=== PATIENT | male | born 1970 | race Caucasian/White ===

== ENCOUNTER 2025-04-05 09:10 | Emergency (ER) | payer BC, SELFPAY ==
[2025-04-05 09:15] VITALS: BP 149/93
[2025-04-05 10:44] VITALS: BMI 26.6
--- NOTE | 2025-04-05 10:55 | ED.GENMED ---
History of Present Illness
<HEATHER Horan - Last Filed: 04/05/25 14:04>
General
Chief Complaint: Post Operative Problem(s)
Source: patient
Exam Limitations: none
Time Seen by Provider: 04/05/25 10:26
Nursing documentation reviewed up to this point in time: agreed with
History of Present Illness
History of Present Illness:
Patient is a 54-year-old male who presents to the ER for evaluation of right groin pain. Patient had an ablation for SVT done 2 weeks ago at [facility] and reports that starting yesterday he had some discomfort in his right groin. He
always has had some discomfort and burning sensation in his right groin and nothing on the left however yesterday complained of increased pain. He denies any redness or drainage from the incision. He denies any fevers. He reports he does feel the
area is very minimally swollen. He was sent to rule out DVT. Does feel that it is were worse when he walks.
He does have a history of inguinal hernia repair in the past.
Past History
<HEATHER Horan - Last Filed: 04/05/25 14:04>
Past History
ED Past Medical History: Arrthythmia, HTN and Hypercholesterolemia
Social History
Tobacco: Non-smoker
Family History
Family History: Negative Early CAD or CAD
Review of Systems
<HEATHER Horan - Last Filed: 04/05/25 14:04>
Review of Systems
Allergies reviewed?: Yes
All Other Systems: ROS reviewed and negative except as documented in HPI and ROS
Constitutional: Reports no symptoms
Musculoskeletal: Reports other (right groin discomfort )
Skin: Reports no symptoms
Neurological: Reports no symptoms
Psychiatric: Reports no symptoms
Phy Exam
<HEATHER Horan - Last Filed: 04/05/25 14:04>
General Physical Exam
General Presentation: no apparent distress
General age: appears stated age
General Skin: warm and dry
General Habitus: normal
General Mental: alert
General Hydration: appears well hydrated
Gastrointestinal Exam
Gastrointestinal Exam: non tender and soft
Neurological Exam
Neurological Exam: alert and oriented x3
Musculoskeletal Exam
Musculoskeletal Exam: other ( b/l groins with healing puncture /incision sites, mildly tender to the right groin no obvious erythema or drainage; tender to the right inguinal canal region and inner groin. No thigh swelling or calf swelling)
Skin Exam
Skin Exam: normal color and warm/dry
Psychiatric Exam
Psychiatric Exam: normal mood/affect
Course
<HEATHER Horan - Last Filed: 04/05/25 14:04>
Orders/Labs/Results
Orders:
Orders
04/05/25 09:17
US Periph Venous LOWER Ext RT Urgent
Comment:
Reason For Exam: s/p albation via right groin c/o groin pain
04/05/25 11:18
US Groin (Imaging Only) RT Urgent
Comment:
Reason For Exam: groin pain, eval for hernia
US Groin (vascular exam) RT Urgent
Comment: eval for pseudoaneurysm
Reason For Exam: right groin pain and swelling s/p cardiac ablation
Vital Signs
Initial and Last Documented VS:
Initial Vital Signs
Temp Pulse Resp BP Pulse Ox
98.0 F 68 16 149/93 98
04/05/25 09:15 04/05/25 09:15 04/05/25 09:15 04/05/25 09:15 04/05/25 09:15
Last Documented Vital Signs
Temp Pulse Resp BP Pulse Ox
98.0 F 68 16 149/93 98
04/05/25 09:15 04/05/25 09:15 04/05/25 09:15 04/05/25 09:15 04/05/25 09:15
Waterproofing Mixer consulted with Physician
Waterproofing Mixer consulted with physician?: Yes
Name of Physician Consulted: nicole
<Pacheco Garcia MD - Last Filed: 04/05/25 11:24>
Orders/Labs/Results
Orders:
Orders
04/05/25 09:17
US Periph Venous LOWER Ext RT Urgent
Comment:
Reason For Exam: s/p albation via right groin c/o groin pain
04/05/25 11:18
US Groin (Imaging Only) RT Urgent
Comment:
Reason For Exam: groin pain, eval for hernia
US Groin (vascular exam) RT Urgent
Comment: eval for pseudoaneurysm
Reason For Exam: right groin pain and swelling s/p cardiac ablation
Vital Signs
Initial and Last Documented VS:
Initial Vital Signs
Temp Pulse Resp BP Pulse Ox
98.0 F 68 16 149/93 98
04/05/25 09:15 04/05/25 09:15 04/05/25 09:15 04/05/25 09:15 04/05/25 09:15
Last Documented Vital Signs
Temp Pulse Resp BP Pulse Ox
98.0 F 68 16 149/93 98
04/05/25 09:15 04/05/25 09:15 04/05/25 09:15 04/05/25 09:15 04/05/25 09:15
<HEATHER Horan - Last Filed: 04/05/25 14:04>
MDM/Problems Addressed
Differential Diagnosis Includes:
Not limited to hematoma pseudoaneurysm less likel
MDM/Problems Addressed:
As documented patient is a 54-year-old male status post ablation 2 weeks ago with right groin discomfort. No obvious infection on exam ultrasound negative for hematoma DVT and negative for pseudoaneurysm no palpable inguinal hernia on exam and no
obvious inguinal hernia on ultrasound. Patient was evaluated physician possible muscular pain will DC with ice with close outpatient follow-up family doctor for recheck in the next several days.
<HEATHER Horan - Last Filed: 04/05/25 14:04>
*Radiology
Radiology exam reviewed: radiology read reviewed
*Pulse Oximetry
Patient hypoxic: no
*Critical Care Note
Total Time (30-74mins, 75-104mins- exclusive of procedures): Not Applicable
ED Attending Note
<HEATHER Horan - Last Filed: 04/05/25 14:04>
-
Portions of this chart may have been created with voice recognition software.� Occasional wrong word or��sound alike� substitutions may have occurred due to the inherent limitations of voice recognition software.
<Pacheco Garcia MD - Last Filed: 04/05/25 11:24>
ED Attending Note
Patient seen and examined by attending physician: Yes
ED Attending Note:
I have seen and evaluated the patient with a [id number] encounter. I have spoken to the advance practicer provider and involved in the medical history, the physical exam, medical decision making.
Evaluation and management service: agree unless noted differently below.
Results interpretation: agree unless noted differently below.
Focused HPI: 54-year-old male with history as noted presents for evaluation of right groin pain. Patient had cardiac ablation for SVT 2 weeks ago through [facility]. Required bilateral femoral puncture. He says that yesterday he started with
pain and swelling in the right groin. Called his special investigation unit investigator who recommended he come to the emergency room for an ultrasound.
Physical exam: Awake alert no distress. Mildly hypertensive but otherwise normal vitals. On exam of his groin: Left groin appears normal with palpable femoral pulse no mass. His right groin is slightly full when compared to the left but no focal
swelling or palpable mass. He does have palpable femoral pulse. He does have diffuse tenderness medial greater than lateral in the right groin extending to essentially the pubic symphysis. No palpable hernia. No skin changes.
Medical Decision Makin-year-old male presents with fullness and pain in the right groin 2 weeks removed from femoral access for cardiac ablation. Vitals and exam as above. He had an ultrasound in triage to rule out DVT this was negative.
Will check groin ultrasound to rule out pseudoaneurysm as well as to evaluate for any signs of hernia. Reassess after the above.
Discharge Plan
Departure
Patient Disposition: Home (Routine Discharge)
Date of Disposition: 04/05/25
Time of Disposition: 14:01
Patient with high blood pressure during this ER visit?: Yes
Condition: Fair
Covid-19: Not Applicable
Discharge Problem:
Rt groin pain
Instructions: BLOOD PRESSURE
Referrals:
Royce Medina MD [Family Provider] -
Activity Restrictions/Additional Instructions:
Groin pain
As discussed your ultrasound was negative for DVT ,negative for hematoma ,and negative for pseudoaneurysm. There is no evidence of infection on exam. Continue to intermittently ice the area and you may take Tylenol as needed. Follow-up with
family doctor in the next week for reevaluation.
return if any worsening of symptoms.
Interventions
Interventions:
*Risk Screen - Suicide Last Done: 04/05/25 09:15
*General Assessment Last Done: 04/05/25 10:44
*Neglect/Abuse Screening Last Done: 04/05/25 09:15
*ED- Fall Risk Assessment Last Done: 04/05/25 10:44
*ED COVID-19 Vaccine History Last Done: 04/05/25 10:44
ED-Skin Assessment Last Done: 04/05/25 12:37
Discharge Date and Time
Print Language: ANGOLAN
[2025-04-05 14:04] VITALS: BP 149/101
== END 2025-04-05 14:15 | disposition home or self-care (01) ==
LOC: EMR 09:10
PROVIDERS: EMERGENCY PHYSICIAN Emergency Medicine; FAMILY PHYSICIAN Internal Medicine
DX: R10.31 Right lower quadrant pain (principal); I10 Essential (primary) hypertension; E78.00 Pure hypercholesterolemia, unspecified
CPT/HCPCS: 99284; 76882; 93926; 93971